=== PATIENT | male | born 1970 | race Caucasian/White ===

== ENCOUNTER 2022-07-03 16:58 | Emergency (ER) | payer BC, OTHER, SELFPAY ==
[2022-07-03 17:49] VITALS: BP 137/86; PULSE 90; RESP 18; TEMP 36.6; O2SAT 100
--- NOTE | 2022-07-03 18:35 | ED.URI ---
HPI - URI/Sore Throat General Chief Complaint: Upper Respiratory Infection Stated Complaint: Sore Throat Time Seen by Provider: 07/03/22 18:25 History of Present Illness HPI Narrative: 51-year-old male presents for complaint of sore throat for 2 days. Endorses gagging sensation when laying flat in bed. He states his uvula is swollen and he saw white patches on the top of his throat. He has history of a tonsillectomy. He denies sick contacts. Denies associated headache, nausea, vomiting, fevers or chills. He is not taking anything for symptoms. Review of Systems Review of Systems: CONSTITUTIONAL: Denies body aches, fever, chills, or sweats. EYES: Denies visual changes, redness, or discharge. ENT: Denies rhinorrhea, congestion, or otalgia. CARDIOVASCULAR: Denies chest pain, palpitations, or edema. RESPIRATORY: Denies dyspnea. GASTROINTESTINAL: Denies abdominal pain, nausea, vomiting, or diarrhea. SKIN: Denies rash, itching, or wounds. MUSCULOSKELETAL: Denies back pain, joint pain, or myalgia. NEUROLOGIC: Denies headache Exam Narrative: GENERAL: well-appearing EYES: conjunctivae clear ENT: Mucous membranes moist. TMs pearly carver with normal light reflex bilaterally; no tragal tenderness. Oropharynx erythematous with white exudate. Tonsils absent. No drooling, no hoarseness, no trismus, uvula with mild swelling and erythema; midline. No tripod positioning, hot potato voice, or soft palate swelling. NECK: Supple. No lymphadenopathy CHEST: Clear to auscultation, breath sounds equal. No respiratory distress, speaks in full sentences. HEART: Regular rate and rhythm. No murmur heard. SKIN: Warm, dry, no rash. NEURO: Alert and oriented x3. Course Course Emergency Course: Patient is aware of diagnosis, understands and agrees to treatment plan. Anticipatory guidance given. Patient agrees to follow-up as directed and is aware of reasons to seek care at the emergency department. Portions of this record may have been created with voice recognition software Level of Care: Express Care Visit Vital Signs Vital signs: Vital Signs Temperature 97.8 F 07/03/22 17:49 Pulse Rate 90 07/03/22 17:49 Respiratory Rate 18 07/03/22 17:49 Blood Pressure 137/86 07/03/22 17:49 Pulse Oximetry 100 07/03/22 17:49 Oxygen Delivery Room Air 07/03/22 17:49 Temperature 97.8 F 07/03/22 17:49 Pulse Rate 90 07/03/22 17:49 Respiratory Rate 18 07/03/22 17:49 Blood Pressure 137/86 07/03/22 17:49 Pulse Oximetry 100 07/03/22 17:49 Oxygen Delivery Room Air 07/03/22 17:49 MDM - URI/Sore Throat MDM Narrative Medical decision making narrative: Positive strep result reviewed with pt. Advise supportive treatments. Patient is appropriate for outpatient treatment and follow-up. Differential Diagnosis Differential diagnosis: Likely upper respiratory infection, viral infection and pharyngitis Discharge Plan Discharge Clinical Impression: Strep pharyngitis Patient Disposition: Home, Self-Care Condition: Stable Instructions: Antibiotic Form, Strep Throat (ED) Additional Instructions: - Take the antibiotic as directed. Fever and sore throat typically resolve within one to three days. Most patients can return to work after 24 hours of antibiotic therapy, provided you are fever free and otherwise well. -Eat and drink things that are easy to swallow, like soft foods, cool liquids, tea with honey, or popsicles . -Salt water gargles and/or may use topical anesthetic ( Chloraseptic spray) or lozenges to relieve dryness or throat pain -Alternate Tylenol and ibuprofen as needed for pain and fever as directed. -Frequent hand washing or hand director business development is one of the best ways to prevent spread of infection. Throw away the toothbrush after 24hours of antibiotic. -Follow up with primary care provider in 2-3 days if condition is not improving -Go to the ER if you have trouble breathing, cannot drink enough fluids,
== END 2022-07-03 18:39 | disposition home or self-care (01) ==
PROVIDERS: Emergency Provider Nurse Practitioner Family; PCP Family Medicine
DX: J02.0 Streptococcal pharyngitis (principal)
CPT/HCPCS: 87880; 99203; G0463